=== PATIENT | female | born 1955 | race Caucasian/White ===

== ENCOUNTER 2020-06-20 10:43 | Day surgery (SDC) | payer MEDICARE ==
[2020-06-15 14:41] VITALS: BMI 30.7
[~2020-06-20 10:43] MED LIST: LACTATED RINGERS 1,000 ML IV SCH
[2020-06-20 11:10] VITALS: RESP 16; TEMP 97.3
[2020-06-20] MEDS ORDERED: LIDOCAINE 1% (10MG/ML) FOR IV START INTRADERMA ONE (11:24)
[2020-06-20] MEDS ORDERED: LIDOCAINE 1% INJ 10MG/ML (20 ML MDV) ONE (12:51)
[2020-06-20] MEDS ORDERED: PROPOFOL 10 MG/ML 20 ML VIAL IV ONE (12:51)
--- NOTE | 2020-06-20 13:26 | P.PCN ---
Date of Procedure: 06/20/20 Description of Procedure: BRIEF HISTORY: Patient is a 65-year-old female presenting for outpatient colonoscopy for screening for malignant neoplasm in the colon. Last colonoscopy 10 years ago. Does report family history of colon cancer in her brother. PROCEDURE PERFORMED: Colonoscopy with polypectomy. PREOPERATIVE DIAGNOSIS: Screening for malignant neoplasm of the colon, last colonoscopy 10 years ago, family history of colon cancer in the patient's brother. ESTIMATED BLOOD LOSS: Minimal. IV sedation per Anesthesia. PROCEDURE: After informed consent was obtained, the patient, was brought into the endoscopy unit. IV sedation was administered by Anesthesia under continuous monitoring. Digital rectal examination was normal. Initially the Olympus CF-190 flexible video colonoscope was then inserted in the rectum, gradually advanced into the cecum without any difficulty. Careful examination was performed as the scope was gradually being withdrawn. Ileocecal valve and the appendiceal orifice were visualized and appeared normal. Prep was excellent. Mucosa of the cecum, ascending colon, transverse colon, descending colon, sigmoid colon, and rectum appeared normal. Diminutive polyps measuring 2-3 mm in size removed with cold forcep polypectomy from the cecum and 2 from the ascending colon. Small and large mouth diverticula noted in the sigmoid colon. Retroflexion was performed in the rectum and no lesions were seen. The patient tolerated the procedure we ll. IMPRESSION: 3 diminutive polyps removed from the cecum and 2 from the ascending colon with cold forcep polypectomy. Moderate sigmoid diverticulosis. RECOMMENDATIONS: Findings of this examination were discussed with the patient and her family. Okay to resume diet. Okay to resume medications. If pathology from polypectomies. Would recommend repeat colonoscopy in 5 years for family history of colon cancer.
[2020-06-20 13:43] VITALS: BP 168/87; PULSE 66
== END 2020-06-20 13:55 ==
LOC: ORWHC2ENDO 10:43
PROVIDERS: ATTEND Internal Medicine
DX: Z12.11 Encounter for screening for malignant neoplasm of colon (principal); D12.2 Benign neoplasm of ascending colon; D12.0 Benign neoplasm of cecum; K57.30 Diverticulosis of large intestine without perforation or abscess without bleeding; R00.2 Palpitations; K21.9 Gastro-esophageal reflux disease without esophagitis; Z80.0 Family history of malignant neoplasm of digestive organs; Z88.5 Allergy status to narcotic agent; Z88.8 Allergy status to other drugs, medicaments and biological substances; Z88.6 Allergy status to analgesic agent; Z79.899 Other long term (current) drug therapy; Z79.890 Hormone replacement therapy; Z90.710 Acquired absence of both cervix and uterus; Z96.653 Presence of artificial knee joint, bilateral; Z98.890 Other specified postprocedural states
CPT/HCPCS: 88305; 45380; J2001; J2704